=== PATIENT | female | born 1940 | race Hispanic/Latino ===

== ENCOUNTER 2017-06-19 09:20 | Outpatient (CLI) | payer MEDICARE ==
--- NOTE | 2017-06-19 15:37 | Mammography Report ---
BILATERAL DIGITAL SCREENING MAMMOGRAM with CAD: 06/19/17 09:20:00 CLINICAL: Routine screening. COMPARISON:06/30/14 FINDINGS: The breasts are almost entirely fatty. No mass, architectural distortion or suspicious calcifications. IMPRESSION: No mammographic evidence of malignancy. BI-RADS CATEGORY: 1 - - Negative RECOMMENDATION: Routine mammographic screening in one year. COMMENT: Patient follow-up letters are generated by our [employer] application.
== END 2017-06-19 09:21 | disposition home or self-care (01) ==
LOC: SPVWC 09:20
PROVIDERS: ATTEND Internal Medicine
DX: Z12.31 Encounter for screening mammogram for malignant neoplasm of breast (principal)
CPT/HCPCS: 77067

== ENCOUNTER 2018-06-21 08:57 | Outpatient (CLI) | payer MEDICARE, OTHER ==
--- NOTE | 2018-06-21 09:50 | Mammography Report ---
BILATERAL MAMMOGRAM: FINDINGS: The breasts are almost entirely fat (<25% glandular). No mass, distortion, suspicious calcification, or skin change is seen. No interval change when compared to exams dating back to June 2014. CAD was utilized. IMPRESSION: Negative mammogram. There is no mammographic evidence of malignancy. RECOMMENDATION: Follow-up per ACS guidelines. BI-RADS CATEGORY: 1 = Negative ACR BI-RADS MAMMOGRAPHIC CODES: 0 = Needs additional imaging evaluation; 1 = Negative; 2 = Benign; 3 = Probably benign; 4 = Suspicious; 5 = Malignant; 6 = Known biopsy-proven malignancy COMMENT: 1. Dense breast tissue, i.e., adenosis, fibrocystic changes, etc., may obscure an underlying neoplasm. 2. Approximately 10% of cancers are not detected with mammography. 3. A negative mammography report should not delay biopsy if a clinically suspicious mass is present. COMMENT: Patient follow-up letters are generated in [employer].
== END 2018-06-21 08:58 | disposition home or self-care (01) ==
LOC: SPVWC 08:57
PROVIDERS: ATTEND Internal Medicine
DX: Z12.31 Encounter for screening mammogram for malignant neoplasm of breast (principal)
CPT/HCPCS: 77067

== ENCOUNTER 2018-10-13 11:43 | Outpatient (CLI) | payer MEDICARE, OTHER ==
--- NOTE | 2018-10-13 16:22 | Vascular Lab Report ---
PROCEDURE: VL VENOUS DUPLEX LE LT TECHNIQUE: The routine technique for an ultrasound was performed per protocol from this institution HISTORY: LEG SWELLING COMPARISONS: none FINDINGS: Multiple images submitted some of which are labeled left and some of which are labeled right but the study was ordered as a left lower extremity examination, repeating the study with radiologist present to confirm the below findings is recommended Diffuse soft tissue swelling without discrete mass or collection on the patient account representative images submitt ed No evidence of deep venous thrombosis on any of the patient account representative images submitted which are labeled left CFV and left SFV and left pop praful Images labeled right CFV and right SFV also show no evidence of deep venous thrombosis in either IMPRESSION: Multiple images submitted some of which are labeled left and some of which are labeled right but the study was ordered as a left lower extremity examination, repeating the study with radiologist present to confirm the below findings is recommended Diffuse soft tissue swelling without discrete mass or collection on the patient account representative images submitt ed No evidence of deep venous thrombosis on any of the patient account representative images submitted which are labeled left CFV and left SFV and left pop praful Images labeled right CFV and right SFV also show no evidence of deep venous thrombosis in either . This document is electronically signed by Billy Fuentes MD., Oct 13 2018 04:20:24 PM ET
== END 2018-10-13 11:44 | disposition home or self-care (01) ==
LOC: VAS 11:43
PROVIDERS: ATTEND Internal Medicine
DX: M79.89 Other specified soft tissue disorders (principal)